=== PATIENT | male | born 1990 | race Caucasian/White ===

== ENCOUNTER 2018-12-20 07:51 | Emergency (ER) | payer BC ==
[2018-12-20 08:03] VITALS: BP 136/75
--- NOTE | 2018-12-20 08:20 | ED ---
Throat Pain/Nasal Congestion - HPI Summary HPI Summary: 28 yr old male with the complaint of dental pain. Onset over the past three days. He has a partially erupted wisdom tooth on the right bottom. The patient complains of pain that is moderate to severe, 7/10, and localized to the right lower wisdom tooth. No associated facial swelling, redness or drainage. He states opening mouth makes pain worse in the tooth area. - History of Current Complaint Chief Complaint: UCDentalProblem Time Seen by Provider: 12/20/18 08:07 - Allergies/Home Medications Allergies/Adverse Reactions: Allergies Allergy/AdvReac Type Severity Reaction Status Date / Time hydrocodone Allergy Hives Verified 12/20/18 08:04 PMH/Surg Hx/FS Hx/Imm Hx Endocrine/Hematology History: Denies: Hx Diabetes, Hx Thyroid Disease Cardiovascular History: Denies: Hx Hypertension Respiratory History: Denies: Hx Asthma, Hx Chronic Obstructive Pulmonary Disease (COPD) GI History: Denies: Hx Ulcer - Surgical History Surgery Procedure, Year, and Place: right femur reconstruction, appy Infectious Disease History: No Infectious Disease History: Denies: Hx Hepatitis, Hx Human Immunodeficiency Virus (HIV), History Other Infectious Disease, Traveled Outside the [place] in Last 30 Days - Family History Known Family History: Positive: None - Social History Occupation: Employed Full-time Alcohol Use: Weekly Substance Use Type: Reports: Marijuana Substance Use Comment - Amount & Last Used: now and then Smoking Status (MU): Heavy Every Day Tobacco Smoker Type: Cigarettes Amount Used/How Often: 1/2 - 1 PPD Length of Time of Smoking/Using Tobacco: 9 Years Have You Smoked in the Last Year: Yes Review of Systems Constitutional: Negative Positive: Dental Pain All Other Systems Reviewed And Are Negative: Yes Physical Exam Triage Information Reviewed: Yes Vital Signs On Initial Exam: Initial Vitals Temp Pulse Resp BP Pulse Ox 98.1 F 76 18 136/75 99 12/20/18 07:58 12/20/18 07:58 12/20/18 07:58 12/20/18 07:58 12/20/18 07:58 Vital Signs Reviewed: Yes Appearance: Positive: Well-Appearing, No Pain Distress Skin: Positive: Warm, Skin Color Reflects Adequate Perfusion Head/Face: Positive: Normal Head/Face Inspection Eyes: Positive: EOMI ENT: Positive: Normal ENT inspection, Pharynx normal, TMs normal, Dental tenderness - right lower wisdom Dental: Positive: Cervical Lymphadenopathy Neck: Positive: Nontender Respiratory/Lung Sounds: Positive: Clear to Auscultation, Breath Sounds Present Cardiovascular: Positive: RRR. Negative: Murmur Abdomen Description: Negative: Distended Musculoskeletal: Positive: Strength/ROM Intact Neurological: Positive: Sensory/Motor Intact, Alert, Oriented to Person Place, Time, CN Intact II-III, Normal Gait, Speech Normal Psychiatric: Positive: Normal - [place] Coma Scale Best Eye Response: 4 - Spontaneous Best Motor Response: 6 - Obeys Commands Best Verbal Response: 5 - Oriented Coma Scale Total: 15 Diagnostics - Vital Signs Vital Signs Temp Pulse Resp BP Pulse Ox 12/20/18 07:58 98.1 F 76 18 136/75 99 - Laboratory Lab Statement: Any lab studies that have been ordered have been reviewed, and results considered in the medical decision making process. EENT Course/Dx - Course Course Of Treatment: 28 yr old with partially impacted right lower wisdom tooth. Rx with augmentin and referral to oral surgery. - Diagnoses Provider Diagnoses: Pain, dental Discharge - Sign-Out/Discharge Documenting (check all that apply): Patient Departure All imaging exams completed and their final reports reviewed: No Studies - Discharge Plan Condition: Good Disposition: HOME Prescriptions: Amoxicillin/Clavulanate TAB* [Augmentin TAB 875*] 875 mg PO BID #20 tab Ibuprofen TAB* [Motrin TAB* 600 MG] 600 mg PO Q6H PRN #20 tab PRN Reason: Pain Scale 1-5 Patient Education Materials: Toothache (ED) Referrals: No Primary Care Phys,NOPCP [Primary Care Provider] - Kilo Graham DMD [Doctor of Dental Medicine] - 2 Days - Billing Disposition and Condition Condition: GOOD Disposition: Home
== END 2018-12-20 08:20 | disposition home or self-care (01) ==
LOC: UCCORT 07:51
DX: K08.89 Other specified disorders of teeth and supporting structures (principal); F17.210 Nicotine dependence, cigarettes, uncomplicated
CPT/HCPCS: 99202; G0463

== ENCOUNTER 2019-09-29 09:17 | Emergency (ER) | payer BC ==
--- NOTE | 2019-09-29 09:25 | UC ---
Laceration HPI - HPI Summary HPI Summary: 29 y/o male presents to the urgent care c/o cutting his Rt hand w/ a metal pole while docking a boat yesterday around 1700PM. Pt reports he irrigated his wound real well and applied alcohol and antibiotic oint and covered w/ a Band Aid. Last tetanus vaccine was on 2013. He took Ibuprofen last night for pain. Pain today is 2/10 at touch. He can move his hand and fingers w/o any difficulty. He denies fever, numbness or tingling sensation over RT hand, cough , URI symptoms, SOB, chest pain,abdominal pain, N/V/D. - History Of Current Complaint Stated Complaint: RT HAND LACERATION Time Seen by Provider: 09/29/19 09:22 Hx Obtained From: Patient Laceration Location: Hand - palmar side of the RT hand w/ a laceration Mechanism Of Injury: Sharp Trauma Onset/Duration: Sudden Onset, Lasting Hours - 16 hrs Severity: Mild Pain Intensity: 2 - at touch Pain Scale Used: 0-10 Numeric Aggravating Factors: Movement Related History: Dominant Hand Right - Allergies/Home Medications Allergies/Adverse Reactions: Allergies Allergy/AdvReac Type Severity Reaction Status Date / Time hydrocodone Allergy Hives Verified 09/29/19 09:27 Home Medications: Home Medications Bacitracin OINTMENT* 1 applic TOPICAL TID #1 tube 09/29/19 [Rx] Cephalexin CAP* [Keflex CAP*] 500 mg PO QID #28 cap 09/29/19 [Rx] Omeprazole 40 mg PO DAILY 09/29/19 [History Confirmed 09/29/19] PMH/Surg Hx/FS Hx/Imm Hx Previously Healthy: Yes - Pt denies PMHX - Surgical History Surgical History: Yes Surgery Procedure, Year, and Place: right femur reconstruction, appy - Family History Known Family History: Positive: Hypertension - Social History Occupation: Employed Full-time Lives: With Family Alcohol Use: Weekly Substance Use Type: Marijuana Substance Use Comment - Amount & Last Used: now and then Smoking Status (MU): Heavy Every Day Tobacco Smoker Type: Cigarettes Amount Used/How Often: 1/2 - 1 PPD Length of Time of Smoking/Using Tobacco: 9 Years Have You Smoked in the Last Year: Yes - Immunization History Most Recent Influenza Vaccination: Not the Season Most Recent Tetanus Shot: 10/16/13 Hx Tetanus, Diphtheria Vaccination: No Review of Systems All Other Systems Reviewed And Are Negative: Yes Constitutional: Positive: Negative Skin: Positive: Other - laceration on palmar side of RT hand just below the RT index finger with a metal pole while dockking a boat Eyes: Positive: Negative ENT: Positive: Negative Respiratory: Positive: Negative Cardiovascular: Positive: Negative Gastrointestinal: Positive: Negative Genitourinary: Positive: Negative Motor: Positive: Negative Neurovascular: Positive: Negative Musculoskeletal: Positive: Other: - RT hand pain s/p laceration yesterday Neurological/Mental Status: Positive: Negative Psychological: Positive: Negative Is Patient Immunocompromised?: No Physical Exam - Summary Physical Exam Summary: Vital Signs Reviewed: Yes General: well developed, well nourished male sitting in the examining table w/o any apparent distress Eye Exam: Normal Eyes: Positive: Conjunctiva Clear - PERRLA, EOMI, fundi grossly normal ENT: Positive: Normal ENT inspection, Hearing grossly normal, Pharynx normal, TMs normal Neck: Positive: Supple, Nontender, No Lymphadenopathy Respiratory: Positive: Chest non-tender, Lungs clear, Normal breath sounds, No respiratory distress Cardiovascular: Positive: RRR, No Murmur, Pulses Normal, Brisk Capillary Refill Abdomen Description: Positive: Nontender, No Organomegaly, Soft. Negative: CVA Tenderness (R), CVA Tenderness (L) Bowel Sounds: Positive: Present Musculoskeletal: Positive: Strength Intact, ROM Intact, No Edema Neurological: Positive: Alert, Muscle Tone Normal Psychological Exam: Normal Skin: Positive:Palmar side of the RT hand below near base of RT index finger with a linear laceration about 2.0cm x 0.5cm in size, non bleeding, no foreign body observed. mild tenderness to palpation, NO ecchymosis around RT hand elbow. FROM of RT hand and all fingers, sensation intact, capillary refill brisk, and pulses WNL. Triage Information Reviewed: Yes Laceration Course/Dx - Course/Dx Course Of Treatment: 29 y/o male presents to the urgent care c/o cutting his Rt hand w/ a metal pole while docking a boat yesterday around 1700PM. Pt reports he irrigated his wound real well and applied alcohol and antibiotic oint and covered w/ a Band Aid. Last tetanus vaccine was on 2013. He took Ibuprofen last night for pain. Pain today is 2/10 at touch. He can move his hand and fingers w/o any difficulty. He denies fever, numbness or tingling sensation over RT hand, cough , URI symptoms, SOB, chest pain,abdominal pain, N/V/D. Hx obtained. Pt w/ Palmar side of the RT hand below near base of RT index finger with a linear laceration about 2.0cm x 0.5cm in size, non bleeding, no foreign body observed. mild tenderness to palpation, NO ecchymosis around RT hand elbow. FROM of RT hand and all fingers, sensation intact, capillary refill brisk, and pulses WNL on examination. Pt's symptoms discussed w/ DR Silverman since injury has been already 16 hrs and he recommends no laceration closure with sutures since it has been more than 12 hrs. He recommends antibiotics and f/u in 3 days w/ PCP or here to make sure wound is healing well. Pt explained the reason why No laceration repair cam be performed at this moment. Copious irrigation was done with saline and soap, and the wound cleaned and explored. There was no FB or deep structure injury noted. Wound cleaned saline water and then w/ Iodine swabs. Bacitracin oint applied over and then 3 steri-strips applied over wound and covered w/non adhesive gauze and sterile gauze. The Pt tolerated the procedure well without adverse effects. Neurovascular intact and FROM of all finger. Tdap ordered and applied by nurse. Pt Rx Keflex PO and Bacitracin ointment. Advised to continue w/ Ibuprofen PO to alleviate symptoms. Pt strongly advised if any signs of infection develop to immediately return to the urgent care or PCP and f/u in 3 days to make sure wound healing well. Pt's BP is elevated today and advised to decrease salt in diet, monitor BP and f/u with PCP if BP continues to be elevated for further management. Pt understood and agreed and left the clinic ambulating A&Ox3. - Differential Dx - Laceration/Wound Differental Diagnoses: Abrasion, Cellulitis, Fracture, Laceration, Puncture Wound, Tendon Laceration - Diagnosis Provider Diagnosis: Laceration of right hand, Elevated BP without diagnosis of hypertension Discharge ED - Sign-Out/Discharge Documenting (check all that apply): Patient Departure - D/C home All imaging exams completed and their final reports reviewed: No Studies - Discharge Plan Condition: Good Disposition: HOME Prescriptions: Bacitracin OINTMENT* 1 applic TOPICAL TID #1 tube Cephalexin CAP* [Keflex CAP*] 500 mg PO QID #28 cap Patient Education Materials: Laceration (ED), Acute Wound Care (ED) Referrals: [facility] [Outside] - 3 Days Additional Instructions: 1-Please take full course of antibiotic to avoid resistance. 2- Keep wound clean and dry and avoid excessive movement w/ your fingers. 3- F/u for wound check up with your PCP or here at the urgent care. 4-Take Ibuprofen or Tylenol PO q6-8hrs prn for pain or swelling. elevated your hand to decrease swelling 5- If you develop fever or redness around wound despite the antibiotic please go to the ER immediately or return to the Urgent care. 6- Your BP is elevated today and advised to decrease salt in diet, monitor BP and f/u with PCP for further management. - Billing Disposition and Condition Condition: GOOD Disposition: Home - Attestation Statements Provider Attestation: This patient was not seen by me. Chart reviewed. I was available for consult. JOSE
[2019-09-29 09:27] VITALS: BP 146/84
[2019-09-29] MEDS ORDERED: Tetan/Diph/Pertus SYR(Tdap)* 0.5 ML SYR(BOOSTRIX) use SYR contains LATEX IM ONE (09:31)
== END 2019-09-29 10:19 | disposition home or self-care (01) ==
LOC: UCCORT 09:17
DX: S61.411A Laceration without foreign body of right hand, initial encounter (principal); W26.8XXA Contact with other sharp object(s), not elsewhere classified, initial encounter; Y93.89 Activity, other specified; Y92.89 Other specified places as the place of occurrence of the external cause; Z23 Encounter for immunization; Z88.5 Allergy status to narcotic agent; F17.210 Nicotine dependence, cigarettes, uncomplicated
CPT/HCPCS: 90471; 90715; 99212; G0463